=== PATIENT | female | born 1985 | race African-American/Black ===

== ENCOUNTER 2016-07-29 19:20 | Emergency (ER) | payer OTHER ==
[~2016-07-29] VITALS: Ht 170.2 cm; Wt 63.6 kg
[2016-07-29] MEDS ORDERED: ACET-66 PO (19:37)
[2016-07-29] MEDS ORDERED: HYDROCODONE/ACETAMINOPHEN 10-325 MG TABLET PO ONE (20:45)
[2016-07-29] MEDS ORDERED: LIDOCAINE HCL BUFFERED 1% 20 ML VIAL INJ ONE (21:00)
[2016-07-29] MEDS ORDERED: BACITRACIN 0.9 GM PACKET OINTMENT TP ONE (21:15)
[2016-07-29 21:16] VITALS: BP 124/80
== END 2016-07-29 21:40 | disposition home or self-care (01) ==
LOC: EMS 19:21
DX: S62.636A Displaced fracture of distal phalanx of right little finger, initial encounter for closed fracture (principal); S62.634A Displaced fracture of distal phalanx of right ring finger, initial encounter for closed fracture; F12.90 Cannabis use, unspecified, uncomplicated; V49.9XXA Car occupant (driver) (passenger) injured in unspecified traffic accident, initial encounter; Y93.89 Activity, other specified; Y92.89 Other specified places as the place of occurrence of the external cause; Y99.8 Other external cause status
CPT/HCPCS: 29130; 73130; 96372; 99284; J0690; J3490

== ENCOUNTER 2016-08-06 13:08 | Emergency (ER) | payer OTHER ==
[~2016-08-06] VITALS: Ht 170.2 cm; Wt 68.2 kg
[~2016-08-06 13:08] MED LIST: ACET-66 PO
[2016-08-06] MEDS ORDERED: HYDROCODONE/ACETAMINOPHEN 5-325 MG TABLET PO ONE (14:30)
[2016-08-06] MEDS ORDERED: BACITRACIN/POLYMYXIN B 15 GM OINTMENT TP ONE (15:30)
[2016-08-06] MEDS ORDERED: NEOMYCIN/BACITRACIN/POLYMYXIN B OINTMENT PACKET TP ONE (15:45)
[2016-08-06 16:08] VITALS: BP 125/72
== END 2016-08-06 16:19 | disposition home or self-care (01) ==
LOC: EMS 13:10
DX: S62.604D Fracture of unspecified phalanx of right ring finger, subsequent encounter for fracture with routine healing (principal); S62.606D Fracture of unspecified phalanx of right little finger, subsequent encounter for fracture with routine healing; F41.9 Anxiety disorder, unspecified; F12.90 Cannabis use, unspecified, uncomplicated; V89.2XXA Person injured in unspecified motor-vehicle accident, traffic, initial encounter; Y93.89 Activity, other specified; Y92.89 Other specified places as the place of occurrence of the external cause; Y99.8 Other external cause status
CPT/HCPCS: 99283